=== PATIENT | female | born 1955 | race Caucasian/White ===

== ENCOUNTER → 2017-09-06 | Outpatient (CLI) | payer BC ==
--- NOTE | 2017-09-06 11:48 | WOMENS IMAGING REPORT ---
EXAM DESCRIPTION: BONE DENSITY HIP/SPINE COMPLETED DATE/TIME: 09/06/2017 11:34 am REASON FOR STUDY: AGE-RELATED OSTEOPROSIS; M81.0 M81.0 AGE-RELATED OSTEOPOROSIS W/O CURRENT PATHOLO GICAL FRAC COMPARISON: None. TECHNIQUE: Dual-Energy X-ray Absorptiometry (DEXA) of the AP Spine and Hip. LIMITATIONS: None. FINDINGS: LUMBAR SPINE: The bone mineral density (BMD) measured from L1-L4 in the AP projection correlates with a T-score of -1.3, which is osteopenic as defined by the World Health Organization. HIP: The bone mineral density (BMD) measured in the left femoral neck at the hip correlates with a T-score of -1.7, which is osteopenic as defined by the World Health Organization. IMPRESSION: 1. LUMBAR SPINE: Osteopenic 2. HIP: Osteopenic COMMENT: The World Health Organization defines low BMD as follows: T-score: Normal: Greater than -1.0 Osteopenia: Between -1.0 and -2.5 Osteoporosis: Less than -2.5 without fractures Established osteoporosis: Less than -2.5 with fractures In general, you may wish to consider: Diagnosis Treatment Follow-up DEXA Normal BMD Prevention 2-3 years Osteopenia Prevention/Therapy 1-2 years Osteoporosis Therapy Yearly TECHNICAL DOCUMENTATION: JOB ID: [id number] [employer]- All Rights Reserved Reading location - IP/workstation name: [facility] / [facility]
== END ==
LOC: WI 11:01
PROVIDERS: ATTEND Family Medicine
DX: M81.0 Age-related osteoporosis without current pathological fracture (principal)
CPT/HCPCS: 77080

== ENCOUNTER 2019-07-13 17:44 | Emergency (ER) | payer MEDICARE, OTHER ==
[2019-07-13] MEDS ORDERED: ANTIVENIN,CROTALIDAE FAB(OVIN) INJ 1 VIAL IV ONE (18:12)
[2019-07-13 18:28] LABS: INTERNATIONAL RATION (INR) 0.96; PROTHROMBIN TIME 12.8 SEC (11.4-15.4)
[2019-07-13 18:29] LABS: FIBRINOGEN 345 mg/dL (209-497); PARTIAL THROMBOPLASTIN TIME 28.3 SEC (23.5-35.8)
[2019-07-13 18:30] LABS: ABSOLUTE EOSINOPHILS # (AUTO) 0.2 10^3/uL (0.0-0.6); ABSOLUTE MONOCYTES (AUTO) 0.3 10^3/uL (0.1-1.4); BASOPHILS % (AUTO) 0.6 % (0-2); EOSINOPHILS % (AUTO) 3.3 % (0-6); HEMOGLOBIN 13.5 g/dL (12.0-15.5); MEAN CORPUSCULAR HEMOGLOBIN 30.4 pg (27.0-33.4); MEAN CORPUSCULAR HGB CONC 34.5 g/dL (32.0-36.0); MEAN CORPUSCULAR VOLUME 88 fl (80-97); MONOCYTES % (AUTO) 4.3 % (3-13); PLATELET COUNT 300 10^3/uL (150-450); RED BLOOD COUNT 4.43 10^6/uL (3.72-5.28); RED CELL DISTRIBUTION WIDTH 14.2 % (11.5-14.0); SEGMENTED NEUTROPHILS % (AUTO) 65.8 % (42-78); TOTAL CELLS COUNTED % (AUTO) 100 %; WHITE BLOOD COUNT 7.6 10^3/uL (4.0-10.5)
[2019-07-13 18:32] LABS: ALBUMIN 4.2 g/dL (3.5-5.0); ALKALINE PHOSPHATASE 62 U/L (38-126); ANION GAP 7 (5-19); ASPARTATE AMINO TRANSFERASE 23 U/L (14-36); BILIRUBIN,TOTAL 0.2 mg/dL (0.2-1.3); BLOOD UREA NITROGEN 21 mg/dL (7-20); CALCIUM 9.8 mg/dL (8.4-10.2); CARBON DIOXIDE 25 mmol/L (22-30); CHLORIDE 103 mmol/L (98-107); GLUCOSE 125 mg/dL (75-110); TOTAL PROTEIN 6.9 g/dL (6.3-8.2)
--- NOTE | 2019-07-13 18:33 | ER Document Report ---
ED General - General Chief Complaint: Snake Bite Stated Complaint: SNAKE BITE - LEFT HAND Time Seen by Provider: 07/13/19 17:54 Primary Care Provider: AYLIN JEWELL DO [ACTIVE STAFF] - Follow up as needed TRAVEL OUTSIDE OF THE [place] IN LAST 30 DAYS: No - HPI Notes: Chief complaint: Snake bite History of present illness: Generally healthy 63-year-old female was weeding her flower bed at home around 4:45 PM today when she saw a brown variegated snake moving the weeds and suddenly felt sharp stinging over the dorsal surface of the left small finger. She did not see the snake thereafter but knew she was bitten by a snake and suspects that this is a copperhead. The area has rapidly swollen since then and she now has edema that is progressing above the left wrist. She denies any fever, chills, dizziness, palpitations, dyspnea, nausea or vomiting. Last tetanus booster is under 5 years. Patient has a history of depression and takes an antidepressant. She is on no other chronic medical treatment. She reports no medical allergies. Patient is a non-smoker. Rare social alcohol consumption. - Related Data Allergies/Adverse Reactions: lobster Allergy (Uncoded 07/13/19 18:04) Past Medical History - General Information source: Patient, [facility] Records - Social History Smoking Status: Never Smoker Chew tobacco use (# tins/day): No Frequency of alcohol use: None Drug Abuse: None, Marijuana Family History: Reviewed & Not Pertinent Patient has homicidal ideation: No Review of Systems - Review of Systems Notes: Constitutional: Negative for fever. HENT: Negative for sore throat. Eyes: Negative for visual changes. Cardiovascular: Negative for chest pain. Respiratory: Negative for shortness of breath. Gastrointestinal: Negative for abdominal pain, vomiting or diarrhea. Genitourinary: Negative for dysuria. Musculoskeletal: As per HPI. Skin: Negative for rash. Neurological: Negative for headaches, weakness or numbness. 10 point ROS negative except as marked above and in HPI. Physical Exam - Vital signs Vitals: BP 120/73 07/13/19 17:59 - Notes Notes: GENERAL: Well-developed well-nourished appearing in no acute distress. SKIN: Good turgor no rashes. HEAD: Normocephalic atraumatic. EYES: PERRLA. EOMI. Conjunctivae and sclerae clear. EARS: CANALS AND TMS CLEAR. NOSE: CLEAR. MOUTH: Moist mucosa. Good dentition. No stridor or edema. No drooling. NECK: Supple. No masses or thyromegaly. No adenopathy. Carotids 2+ without bruits. No JVD. BACK: Symmetrical without tenderness. CHEST: Respirations unlabored. Breath sounds clear and symmetrical. HEART: Regular rhythm. No murmur gallop or rub. ABDOMEN: Soft nontender without masses, organomegaly or rebound. Bowel sounds normally active. No bruits. GENITALIA: Deferred. EXTREMITIES: Patient has 2 fang nielsen over the dorsal aspect of the proximal inner phalangeal joint of the left fifth finger. She has some surrounding erythema. There is no drainage. She has edema now extending to all the other fingers of the hand and progressing proximally to just above the wrist joint on the dorsal surface. No edema. No calf tenderness. Cap refill less than 1.5 seconds. Dorsalis pedis and posterior tibial pulses 3+ and symmetrical. NEUROLOGICAL: GCS 15. Alert and oriented x3. Fluent speech. Cranial nerves II through XII intact. Sensorimotor and cerebellar normal. Normal tone. PSYCHIATRIC: Appropriate affect. Course - Re-evaluation Re-evalutation: 07/13/19 18:34 IV line established. Patient will remain n.p.o. Baseline labs are drawn. Tetanus booster is current. Case discussed with [place] [employer] [facility] and we agree that she will receive CroFab. This is being initiated at this time. Findings and recommendations have been discussed with the patient. 07/14/19 00:18 Patient received 4 vials of CroFab IV. She declined pain medication other than oral Tylenol. Lab studies including CBC, comprehensive metabolic profile, p rothrombin time, PTT fibrinogen and urinalysis were all normal. We kept patient in the emergency department under observation for approximately 6 hours. We monitored the circumference of the extremity at multiple sites. There was mild regression of swelling and certainly no progression of any of the measured areas. Her vital signs remained stable. All the labs were repeated at 6 hours and remained within normal limits. Patient will be discharged home and is given printed aftercare sheet provided to us by [place] [facility] control. She will follow-up with her primary care physician within the next 48 hours. We will give her a prepack of [place] for home if she has breakthrough pain. - Vital Signs Vital signs: Temp Pulse Resp BP Pulse Ox 98.6 F 85 14 119/61 95 07/13/19 18:04 07/13/19 18:02 07/14/19 00:01 07/14/19 00:01 07/14/19 00:01 - Laboratory Result Diagrams: 07/13/19 23:00 07/13/19 23:00 Laboratory results interpreted by me: 07/13/19 07/13/19 07/13/19 18:03 18:03 22:22 RDW 14.2 H Lymph % (Auto) [place] % (Auto) Absolute Neuts (auto) Seg Neutrophils % Sodium 135.2 L BUN 21 H Creatinine Glucose 125 H Urine Protein 30 H Urine Glucose (UA) 50 H Urine Ketones TRACE H Leukocyte Esterase Rfl SMALL H 07/13/19 07/13/19 23:00 23:00 RDW Lymph % (Auto) 10.[address] [place] % (Auto) 2.7 L Absolute Neuts (auto) 8.4 H Seg Neutrophils % 86.0 H Sodium 134.0 L BUN Creatinine 0.51 L Glucose 144 H Urine Protein Urine Glucose (UA) Urine Ketones Leukocyte Esterase Rfl Critical Care Note - Critical Care Note Total time excluding time spent on procedures (mins): 65 - Initiation of CroFab IV Discharge - Discharge Clinical Impression: Snake envenomation Qualifiers: Encounter type: initial encounter Injury intent: accidental or unintentional Qualified Code(s): T63.001A - Toxic effect of unspecified snake venom, accidental (unintentional), initial encounter Condition: Stable Disposition: HOME, SELF-CARE Instructions: Snakebites ([facility]) Additional Instructions: Keep the affected extremity elevated above the level of the heart. Do not apply a sling or constricting clothing to the left arm. Do not apply ice to the area of swelling. Return here as needed for new or worsening symptoms: Pain that is worsening or unimproved Uncontrolled vomiting High fever or shaking chills Overall worsening Return to your primary care doctor within the next 3 days for reevaluation. Referrals: AYLIN JEWELL DO [ACTIVE STAFF] - Follow up as needed
[2019-07-13 22:34] LABS: APPEARANCE,URINE SLIGHTLY-CLOUDY; BILIRUBIN,URINE NEGATIVE (NEGATIVE); COLOR,URINE YELLOW; GLUCOSE, URINE 50 mg/dL (NEGATIVE); KETONES,URINE TRACE mg/dL (NEGATIVE); PROTEIN,URINE 30 mg/dL (NEGATIVE); URINE SPECIFIC GRAVITY 1.019; UROBILINOGEN,URINE NEGATIVE mg/dL (<2.0)
[2019-07-13] MEDS ORDERED: ACETAMINOPHEN 325 MG TABLET PO ONE (23:09)
[2019-07-13 23:16] LABS: ABSOLUTE LYMPHOCYTES (AUTO) 1.1 10^3/uL (0.5-4.7); ABSOLUTE MONOCYTES (AUTO) 0.3 10^3/uL (0.1-1.4); ABSOLUTE NEUT (AUTO) 8.4 10^3/uL (1.7-8.2); BASOPHILS % (AUTO) 0.2 % (0-2); EOSINOPHILS % (AUTO) 0.2 % (0-6); HEMATOCRIT 40.1 % (36.0-47.0); HEMOGLOBIN 14.2 g/dL (12.0-15.5); LYMPHOCYTES % (AUTO) 10.9 % (13-45); MEAN CORPUSCULAR HEMOGLOBIN 31.4 pg (27.0-33.4); MEAN CORPUSCULAR HGB CONC 35.4 g/dL (32.0-36.0); MEAN CORPUSCULAR VOLUME 89 fl (80-97); MONOCYTES % (AUTO) 2.7 % (3-13); PLATELET COUNT 305 10^3/uL (150-450); RED BLOOD COUNT 4.52 10^6/uL (3.72-5.28); RED CELL DISTRIBUTION WIDTH 13.7 % (11.5-14.0); TOTAL CELLS COUNTED % (AUTO) 100 %; WHITE BLOOD COUNT 9.8 10^3/uL (4.0-10.5)
[2019-07-13 23:26] LABS: INTERNATIONAL RATION (INR) 0.96; PROTHROMBIN TIME 12.8 SEC (11.4-15.4)
[2019-07-13 23:28] LABS: FIBRINOGEN 350 mg/dL (209-497)
[2019-07-13 23:32] LABS: PARTIAL THROMBOPLASTIN TIME 26.7 SEC (23.5-35.8)
[2019-07-13 23:38] LABS: ALBUMIN 4.3 g/dL (3.5-5.0); ALKALINE PHOSPHATASE 55 U/L (38-126); ANION GAP 8 (5-19); ASPARTATE AMINO TRANSFERASE 22 U/L (14-36); BILIRUBIN,TOTAL 0.3 mg/dL (0.2-1.3); BLOOD UREA NITROGEN 16 mg/dL (7-20); CALCIUM 9.4 mg/dL (8.4-10.2); CARBON DIOXIDE 25 mmol/L (22-30); CHLORIDE 101 mmol/L (98-107); GLUCOSE 144 mg/dL (75-110); POTASSIUM 4.3 mmol/L (3.6-5.0); TOTAL PROTEIN 6.8 g/dL (6.3-8.2)
[2019-07-14 00:14] VITALS: BP 119/61
[2019-07-14] MEDS ORDERED: HYDROCODONE/ACETAMINOPHEN 5-325 MG (6 TAB/ER DISP) PO PRN (00:20)
--- NOTE | 2019-07-14 09:23 | EKG REPORT ---
SEVERITY:- NORMAL ECG - SINUS RHYTHM : Confirmed by: Alison Turner MD 14-Jul-2019 09:22:37
== END 2019-07-14 00:49 | disposition home or self-care (01) ==
LOC: ER 17:44
DX: T63.001A Toxic effect of unspecified snake venom, accidental (unintentional), initial encounter (principal); Y93.H2 Activity, gardening and landscaping; Y92.007 Garden or yard of unspecified non-institutional (private) residence as the place of occurrence of the external cause; F32.9 Major depressive disorder, single episode, unspecified; Z79.899 Other long term (current) drug therapy; Z91.013 Allergy to seafood
CPT/HCPCS: 93005; 99285; 96365; 36415; 85025; 85384; 85610; 85730; 87070; 80053; 81001; 93010; A9270 ×2; J0840